=== PATIENT | female | born 1995 | race Caucasian/White ===

== ENCOUNTER 2018-03-13 11:05 | Emergency (ER) | payer MEDICAID, OTHER ==
[~2018-03-13] VITALS: Ht 170.2 cm; Wt 59.0 kg
[~2018-03-13 11:05] MED LIST: NO HOME MEDS
[2018-03-13] MEDS ORDERED: TETanus/Pertussis (Acell)/Diphther VAC/PF (Tdap-Adult) 0.5ml syringe IM ONE (12:45)
[2018-03-13] MEDS ORDERED: LIDOcaine 1.5% w/epinephrine 1:200,000 5ml ampul IJ ONE (12:45)
[2018-03-13 13:28] VITALS: BP 130/77
== END 2018-03-13 13:42 | disposition home or self-care (01) ==
LOC: ER 11:05
DX: S81.812A Laceration without foreign body, left lower leg, initial encounter (principal); F12.90 Cannabis use, unspecified, uncomplicated; Z88.8 Allergy status to other drugs, medicaments and biological substances; W18.39XA Other fall on same level, initial encounter; Y93.89 Activity, other specified; Y92.89 Other specified places as the place of occurrence of the external cause; Y99.8 Other external cause status
CPT/HCPCS: 12002; 90471; 90715; 99283; A6449; J3490

== ENCOUNTER 2018-10-29 12:40 | Emergency (ER) | payer MEDICAID ==
[~2018-10-29] VITALS: Ht 170.2 cm; Wt 53.0 kg
[2018-10-29 13:24] LABS: URINE HCG NEGATIVE (NEG)
[2018-10-29 13:26] LABS: BASOPHILS # (AUTO) 0.1 X10'3 (0-0.2); BASOPHILS % (AUTO) 0.8 % (0-1); EOSINOPHILS # (AUTO) 0.1 X10'3 (0-0.9); EOSINOPHILS % (AUTO) 1.5 % (0-6); HEMATOCRIT 40.8 % (35.0-45.0); HEMOGLOBIN 13.7 g/dl (12.0-16.0); LYMPHOCYTES % (AUTO) 23.1 % (21-51); MEAN CORPUSCULAR HEMOGLOBIN 28.6 PG (27.0-31.0); MEAN CORPUSCULAR HGB CONC 33.6 g/dL (33.0-36.5); MEAN PLATELET VOLUME 7.7 FL (7.4-10.4); MONOCYTES # (AUTO) 0.5 X10'3 (0-0.9); MONOCYTES % (AUTO) 5.2 % (2-12); NEUTROPHILS # (AUTO) 6.1 X10'3 (1.8-7.7); NEUTROPHILS % (AUTO) 69.4 % (42-75); PLATELET COUNT 331 X10'3 (140-440); RED CELL DISTRIBUTION WIDTH 14.1 % (11.5-14.5); WHITE BLOOD COUNT 8.9 X10'3 (4.5-11.0)
[2018-10-29 13:28] LABS: CLARITY,URINE CLEAR (Clear); COLOR,URINE YELLOW (Yellow); GLUCOSE, URINE NEGATIVE (Neg); KETONES,URINE NEGATIVE (Neg); LEUKOCYTE ESTERASE ,URINE TRACE (Neg); NITRITES, URINE NEGATIVE (Neg); OCCULT BLOOD,URINE TRACE-LYSED (Neg); PROTEIN,URINE NEGATIVE (Neg); UROBILINOGEN,URINE 0.2 E.U/dL (0.2-1.0)
[2018-10-29 13:33] LABS: UA COLLECTION TYPE CLN CATCH MIDSTREAM
[2018-10-29 13:39] LABS: RBC,URINE 0-2 /HPF (0-2); WBC,URINE 20-30 /HPF (0-4)
[2018-10-29 13:40] LABS: BACTERIA,URINE FEW /HPF (Neg); SQUAMOUS EPITHELIAL CELL,UR FEW /LPF (FEW)
[2018-10-29 13:41] LABS: WBC CLUMPS,URINE MODERATE /HPF (NEGATIVE)
[2018-10-29 13:48] LABS: ALANINE AMINOTRANSFERASE 21 U/L (12-78); ALBUMIN 4.4 G/DL (3.4-5.0); ALBUMIN/GLOBULIN RATIO 1.2 (1.1-1.5); ALKALINE PHOSPHATASE 91 IU/L (46-116); ANION GAP 9 (8-16); ASPARTATE AMINO TRANSFERASE 11 U/L (10-37); BILIRUBIN,TOTAL 0.3 MG/DL (0.1-1.0); BLOOD UREA NITROGEN 11 MG/DL (7-18); BUN/CREATININE RATIO 12.4 (6.6-38.0); CALCIUM 9.5 MG/DL (8.5-10.1); CHLORIDE 103 MMOL/L (99-107); CREATININE 0.89 MG/DL (0.40-0.90); GLUCOSE 96 MG/DL (70-104); POTASSIUM 4.7 MMOL/L (3.5-5.1); SODIUM 140 MMOL/L (135-145); TOTAL CARBON DIOXIDE 27.8 MMOL/L (24-32); TOTAL PROTEIN 8.1 G/DL (6.4-8.2); eGFR 79 ML/MIN
[2018-10-29 13:50] LABS: PROTHROMBIN TIME 10.4 SECONDS (9.0-12.0)
[2018-10-29 14:49] LABS: BETA HCG,QUANTITATIVE < 1.0 mIU/ml
[2018-10-29] MEDS ORDERED: SULF1TAB49 PO (15:21)
[2018-10-29 15:38] VITALS: BP 124/87
== END 2018-10-29 15:39 | disposition home or self-care (01) ==
LOC: ER 12:40
DX: N39.0 Urinary tract infection, site not specified (principal); F12.90 Cannabis use, unspecified, uncomplicated; Z88.1 Allergy status to other antibiotic agents; Z88.8 Allergy status to other drugs, medicaments and biological substances
CPT/HCPCS: 36415; 76830; 80053; 81001; 81025; 84702; 85025; 85610; 87077; 87088; 87186; 99284

== ENCOUNTER 2018-12-30 15:40 | Emergency (ER) | payer MEDICAID ==
[~2018-12-30] VITALS: Ht 170.2 cm; Wt 56.4 kg
[2018-12-30 17:09] LABS: BASOPHILS % (AUTO) 0.5 % (0-1); EOSINOPHILS # (AUTO) 0.1 X10'3 (0-0.9); HEMATOCRIT 35.1 % (35.0-45.0); HEMOGLOBIN 11.6 g/dl (12.0-16.0); LYMPHOCYTES # (AUTO) 2.6 X10'3 (1.1-4.8); MEAN CORPUSCULAR HEMOGLOBIN 28.4 PG (27.0-31.0); MEAN CORPUSCULAR HGB CONC 33.1 g/dL (33.0-36.5); MEAN CORPUSCULAR VOLUME 85.7 FL (78-98); MEAN PLATELET VOLUME 7.7 FL (7.4-10.4); MONOCYTES # (AUTO) 0.4 X10'3 (0-0.9); MONOCYTES % (AUTO) 4.6 % (2-12); NEUTROPHILS # (AUTO) 5.8 X10'3 (1.8-7.7); NEUTROPHILS % (AUTO) 64.9 % (42-75); PLATELET COUNT 301 X10'3 (140-440); RED CELL DISTRIBUTION WIDTH 13.2 % (11.5-14.5); WHITE BLOOD COUNT 8.9 X10'3 (4.5-11.0)
[2018-12-30] MEDS ORDERED: FERR325T28 PO (17:23)
[2018-12-30 17:40] LABS: URINE HCG NEGATIVE (NEG)
[2018-12-30 17:42] VITALS: BP 130/81
== END 2018-12-30 17:44 | disposition home or self-care (01) ==
LOC: ER 15:40
DX: N93.9 Abnormal uterine and vaginal bleeding, unspecified (principal); R53.83 Other fatigue; F12.90 Cannabis use, unspecified, uncomplicated; Z88.1 Allergy status to other antibiotic agents; Z88.8 Allergy status to other drugs, medicaments and biological substances; Z79.899 Other long term (current) drug therapy
CPT/HCPCS: 36415; 81025; 85025; 99283

== ENCOUNTER 2019-05-17 14:04 | Emergency (ER) | payer MEDICAID ==
[~2019-05-17] VITALS: Ht 170.2 cm; Wt 54.8 kg
[2019-05-17 14:07] VITALS: BP 121/85
== END 2019-05-17 15:39 | disposition home or self-care (01) ==
LOC: ER 14:05
DX: S93.492A Sprain of other ligament of left ankle, initial encounter (principal); F17.200 Nicotine dependence, unspecified, uncomplicated; F12.90 Cannabis use, unspecified, uncomplicated; F10.99 Alcohol use, unspecified with unspecified alcohol-induced disorder; Z88.1 Allergy status to other antibiotic agents; Z88.8 Allergy status to other drugs, medicaments and biological substances; W18.39XA Other fall on same level, initial encounter; Y93.89 Activity, other specified; Y92.89 Other specified places as the place of occurrence of the external cause; Y99.8 Other external cause status; Y90.9 Presence of alcohol in blood, level not specified
CPT/HCPCS: 29515; 73610; 99283

== ENCOUNTER 2019-06-05 16:20 | Emergency (ER) | payer MEDICAID ==
[~2019-06-05] VITALS: Ht 167.6 cm; Wt 54.0 kg
[2019-06-05 16:36] VITALS: BP 133/90
[2019-06-05] MEDS ORDERED: DOXE25CA3 PO (16:58)
[2019-06-05] MEDS ORDERED: PRAZ1CAP5 PO (16:58)
[2019-06-05] MEDS ORDERED: BUSP10TA3 PO (16:58)
[2019-06-05] MEDS ORDERED: LORA1TAB PO (17:09)
[2019-06-05] MEDS ORDERED: LORazepam 1 MG tablet PO ONE (17:10)
== END 2019-06-05 17:37 | disposition home or self-care (01) ==
LOC: ER 16:21
DX: F41.0 Panic disorder [episodic paroxysmal anxiety] (principal); R07.89 Other chest pain; F32.9 Major depressive disorder, single episode, unspecified; F12.90 Cannabis use, unspecified, uncomplicated; F10.99 Alcohol use, unspecified with unspecified alcohol-induced disorder; Z88.1 Allergy status to other antibiotic agents; Z88.8 Allergy status to other drugs, medicaments and biological substances; Z79.899 Other long term (current) drug therapy; Y90.9 Presence of alcohol in blood, level not specified
CPT/HCPCS: 93005; 99283

== ENCOUNTER 2019-12-10 12:37 | Emergency (ER) | payer MEDICAID, OTHER ==
[~2019-12-10] VITALS: Ht 170.2 cm; Wt 57.3 kg
[~2019-12-10 12:37] MED LIST changes: +BUSP10TA3 PO; +DOXE25CA3 PO; -NO HOME MEDS; +PRAZ1CAP5 PO
--- NOTE | 2019-12-10 13:11 | NUR ---
Provider is with the patient at this time.
[2019-12-10] MEDS ORDERED: LORA-269 PO (13:18)
[2019-12-10] MEDS ORDERED: LORazepam 1 MG tablet PO ONE (13:20)
[2019-12-10 13:32] VITALS: BP 120/63
== END 2019-12-10 13:33 | disposition home or self-care (01) ==
LOC: ER 12:37
DX: F41.9 Anxiety disorder, unspecified (principal); F32.9 Major depressive disorder, single episode, unspecified; F12.90 Cannabis use, unspecified, uncomplicated; Z72.89 Other problems related to lifestyle; Z72.0 Tobacco use; Z88.1 Allergy status to other antibiotic agents
CPT/HCPCS: 99283

== ENCOUNTER 2019-12-12 15:22 | Emergency (ER) | payer MEDICAID, OTHER ==
[~2019-12-12] VITALS: Ht 170.2 cm; Wt 54.5 kg
[~2019-12-12 15:22] MED LIST changes: +LORA-269 PO
[2019-12-12] MEDS ORDERED: LORazepam 1 MG tablet PO ONE (16:05)
[2019-12-12] MEDS ORDERED: LORA-269 PO (17:01)
[2019-12-12 17:16] VITALS: BP 113/80
== END 2019-12-12 17:18 | disposition home or self-care (01) ==
LOC: ER 15:22
DX: F41.0 Panic disorder [episodic paroxysmal anxiety] (principal); R06.02 Shortness of breath; R07.89 Other chest pain; F41.9 Anxiety disorder, unspecified; F32.9 Major depressive disorder, single episode, unspecified; F12.90 Cannabis use, unspecified, uncomplicated; Z88.0 Allergy status to penicillin; Z88.1 Allergy status to other antibiotic agents; Z79.899 Other long term (current) drug therapy
CPT/HCPCS: 99283

== ENCOUNTER 2020-06-13 23:43 | Emergency (ER) | payer MEDICAID, OTHER ==
[~2020-06-13] VITALS: Ht 170.2 cm; Wt 57.7 kg
[2020-06-13 23:47] VITALS: BP 134/90
--- NOTE | 2020-06-14 00:03 | NUR ---
PT IS RESTING QUIETLY ON GURNEY, LAC TO RT GREAT TOE, NO BLEEDING, PT IS WAITING TO BE EVALUATED
[2020-06-14] MEDS ORDERED: LIDOcaine 1% W/epiNEPHrine 1:200,000 10ml vial IJ ONE (00:40)
[2020-06-14] MEDS ORDERED: ibuprofen 200mg tablet PO ONE (00:50)
== END 2020-06-14 01:42 | disposition home or self-care (01) ==
LOC: ER 23:43
DX: S91.111A Laceration without foreign body of right great toe without damage to nail, initial encounter (principal); F41.9 Anxiety disorder, unspecified; F32.9 Major depressive disorder, single episode, unspecified; F12.90 Cannabis use, unspecified, uncomplicated; Z72.89 Other problems related to lifestyle; Z88.1 Allergy status to other antibiotic agents; Z88.8 Allergy status to other drugs, medicaments and biological substances; Z79.899 Other long term (current) drug therapy; W18.39XA Other fall on same level, initial encounter; Y93.89 Activity, other specified; Y92.89 Other specified places as the place of occurrence of the external cause; Y99.8 Other external cause status
CPT/HCPCS: 12001; 73660; 99283

== ENCOUNTER 2021-11-02 16:08 | Emergency (ER) | payer MEDICAID ==
[~2021-11-02] VITALS: Ht 170.2 cm; Wt 56.8 kg
[2021-11-02] MEDS ORDERED: LORazepam 1 MG tablet PO ONE (16:20)
[2021-11-02 16:24] VITALS: BP 132/100
[2021-11-02] MEDS ORDERED: HYDR-3686 PO (17:07)
== END 2021-11-02 17:57 | disposition home or self-care (01) ==
LOC: ER 16:09
DX: F41.9 Anxiety disorder, unspecified (principal); R07.89 Other chest pain; F41.0 Panic disorder [episodic paroxysmal anxiety]; F31.9 Bipolar disorder, unspecified; F12.90 Cannabis use, unspecified, uncomplicated; Z88.1 Allergy status to other antibiotic agents; Z72.89 Other problems related to lifestyle; Z88.8 Allergy status to other drugs, medicaments and biological substances; Z79.899 Other long term (current) drug therapy
CPT/HCPCS: 93005; 99283

== ENCOUNTER 2021-12-08 15:27 | Emergency (ER) | payer MEDICAID ==
[~2021-12-08] VITALS: Ht 170.2 cm; Wt 59.6 kg
[~2021-12-08 15:27] MED LIST changes: +HYDR-3686 PO
[2021-12-08 15:56] VITALS: BP 170/95
[2021-12-08] MEDS ORDERED: LORazepam 2 mg/ml vial IM ONE (16:10)
[2021-12-08] MEDS ORDERED: ibuprofen tablet 400 MG TABLET PO ONE (16:10)
[2021-12-08] MEDS ORDERED: LORA-269 PO (17:56)
== END 2021-12-08 18:15 | disposition home or self-care (01) ==
LOC: ER 15:27
DX: F41.0 Panic disorder [episodic paroxysmal anxiety] (principal); R19.7 Diarrhea, unspecified; R11.10 Vomiting, unspecified; R07.89 Other chest pain; F31.9 Bipolar disorder, unspecified; F12.90 Cannabis use, unspecified, uncomplicated; Z72.89 Other problems related to lifestyle; Z88.1 Allergy status to other antibiotic agents; Z88.8 Allergy status to other drugs, medicaments and biological substances; Z79.899 Other long term (current) drug therapy
CPT/HCPCS: 71045; 93005; 96372; 99283; J2060

== ENCOUNTER 2022-03-23 16:12 | Emergency (ER) | payer MEDICAID ==
[~2022-03-23] VITALS: Ht 170.2 cm; Wt 60.0 kg
[2022-03-23 16:35] VITALS: BP 127/70
[2022-03-23] MEDS ORDERED: ALPRAZolam 0.25mg tablet PO ONE (17:40)
--- NOTE | 2022-03-23 17:56 | NUR ---
po med given
== END 2022-03-23 18:25 | disposition home or self-care (01) ==
LOC: ER 16:13
DX: F41.0 Panic disorder [episodic paroxysmal anxiety] (principal); F31.9 Bipolar disorder, unspecified; F12.90 Cannabis use, unspecified, uncomplicated; Z72.89 Other problems related to lifestyle; Z88.1 Allergy status to other antibiotic agents; Z88.8 Allergy status to other drugs, medicaments and biological substances; Z79.899 Other long term (current) drug therapy
CPT/HCPCS: 99283

== ENCOUNTER 2022-04-09 14:05 | Emergency (ER) | payer MEDICAID ==
[~2022-04-09] VITALS: Ht 170.2 cm; Wt 60.0 kg
[2022-04-09 14:12] VITALS: BP 127/85
[2022-04-09] MEDS ORDERED: ALPRAZolam 0.5mg tablet PO ONE (15:00)
[2022-04-09] MEDS ORDERED: ALPR-624 PO (15:18)
== END 2022-04-09 15:35 | disposition home or self-care (01) ==
LOC: ER 14:06
DX: F41.9 Anxiety disorder, unspecified (principal); F31.9 Bipolar disorder, unspecified; F12.90 Cannabis use, unspecified, uncomplicated; Z88.1 Allergy status to other antibiotic agents; Z88.8 Allergy status to other drugs, medicaments and biological substances; Z91.041 Radiographic dye allergy status
CPT/HCPCS: 93005; 99283

== ENCOUNTER 2023-02-06 10:28 | Emergency (ER) | payer MEDICAID ==
[~2023-02-06] VITALS: Ht 170.2 cm; Wt 81.8 kg
[~2023-02-06 10:28] MED LIST changes: +ALPR-624 PO
[2023-02-06 10:36] VITALS: BP 126/82
[2023-02-06] MEDS ORDERED: ketorolac tromethamine 15mg/ml inj. IM ONE (11:50)
== END 2023-02-06 12:19 | disposition home or self-care (01) ==
LOC: ER 10:29
DX: M25.551 Pain in right hip (principal); M25.552 Pain in left hip; F31.9 Bipolar disorder, unspecified; F12.90 Cannabis use, unspecified, uncomplicated; Z88.1 Allergy status to other antibiotic agents; Z88.8 Allergy status to other drugs, medicaments and biological substances; Z91.041 Radiographic dye allergy status
CPT/HCPCS: 72170; 96372; 99283; J1885

== ENCOUNTER 2025-02-23 22:13 | Inpatient (IN) | payer MEDICAID ==
[~2025-02-23] VITALS: Ht 167.6 cm; Wt 45.9 kg
--- NOTE | 2025-02-23 22:25 | ELECTROCARDIOGRAPH REPORT ---
[facility] Test Date: 2025-02-23 Test Time: 22:22:17 Pat Name: JORDAN ARANDA Department: EMERGENCY ROOM Room: ED 2 Gender: F Attorney At Law: DONNA : 1995 Requested By: LAWSON ALDANA Order Number: [id number] Reading MD: Lawson Stiles Measurements Intervals [place] Rate: 85 P: 67 ND: 112 QRS: 79 QRSD: 101 T: 36 QT: 362 QTc: 431 Interpretive Statements Sinus rhythm Borderline short ND interval RSR' in V1 or V2, right VCD or RVH Electronically Signed On 02-24-2025 6:18:32 PDT by Lawson Stiles Please click the below link to view image of tracing.
[2025-02-23] MEDS: phenoBARBITAL inj 130 MG in normal saline 100ml IV soln 99 ML IV ONE (22:55)
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
[2025-02-23 23:30] LABS: BASOPHILS % (AUTO) 0.6 % (0-1); EOSINOPHILS % (AUTO) 0 % (0-6); HEMATOCRIT 39.3 % (35.0-45.0); HEMOGLOBIN 13.2 g/dl (12.0-16.0); LYMPHOCYTES # (AUTO) 1.4 X10'3 (1.1-4.8); LYMPHOCYTES % (AUTO) 20.1 % (21-51); MEAN CORPUSCULAR HEMOGLOBIN 28.7 PG (27.0-31.0); MEAN CORPUSCULAR HGB CONC 33.5 g/dL (33.0-36.5); MEAN CORPUSCULAR VOLUME 85.5 FL (78-98); MEAN PLATELET VOLUME 7.9 FL (7.4-10.4); MONOCYTES # (AUTO) 0.3 X10'3 (0-0.9); MONOCYTES % (AUTO) 4.9 % (2-12); NEUTROPHILS # (AUTO) 5.1 X10'3 (1.8-7.7); NEUTROPHILS % (AUTO) 74.4 % (42-75); PLATELET COUNT 290 X10'3 (140-440); RED CELL DISTRIBUTION WIDTH 13.7 % (11.5-14.5); WHITE BLOOD COUNT 6.9 X10'3 (4.5-11.0)
[2025-02-23 23:46] LABS: APTT 27 SECONDS (22-32); INR 1.2 INR
[2025-02-24] MEDS: normal saline 1000ml 1,000 ML IV ONE (00:22)
[2025-02-24 00:28] LABS: ALANINE AMINOTRANSFERASE 37 U/L (12-78); ALBUMIN 4.9 G/DL (3.4-5.0); ALBUMIN/GLOBULIN RATIO 1.4 (1.1-1.5); ALKALINE PHOSPHATASE 73 IU/L (46-116); ANION GAP 13 (8-16); ASPARTATE AMINO TRANSFERASE 25 U/L (10-37); BILIRUBIN,TOTAL 0.7 MG/DL (0.1-1.0); BLOOD UREA NITROGEN 9 MG/DL (7-18); BUN/CREATININE RATIO 13.4 (10.0-20.0); CALCIUM 9.3 MG/DL (8.5-10.1); CHLORIDE 102 MMOL/L (99-107); CREATININE 0.67 MG/DL (0.40-0.90); GLUCOSE 114 MG/DL (70-104); POTASSIUM 3.5 MMOL/L (3.5-5.1); SODIUM 143 MMOL/L (135-145); TOTAL CARBON DIOXIDE 28.4 MMOL/L (24-32); TOTAL PROTEIN 8.3 G/DL (6.4-8.2); eCRCL 90 ML/MIN; eGFR > 90 ML/MIN
[2025-02-24 00:34] LABS: BILIRUBIN,URINE NEGATIVE (Neg); CLARITY,URINE CLEAR (Clear); COLOR,URINE YELLOW (Yellow); GLUCOSE, URINE NEGATIVE (Neg); KETONES,URINE 15 mg/dl (Neg); LEUKOCYTE ESTERASE ,URINE NEGATIVE (Neg); NITRITES, URINE NEGATIVE (Neg); OCCULT BLOOD,URINE NEGATIVE (Neg); PROTEIN,URINE 30 mg/dl (Neg)
[2025-02-24 00:39] LABS: UA COLLECTION TYPE CLN CATCH MIDSTREAM
[2025-02-24 00:40] LABS: BACTERIA,URINE NONE SEEN /HPF (Neg); RBC,URINE 0-2 /HPF (0-2); SQUAMOUS EPITHELIAL CELL,UR FEW /LPF (FEW); WBC,URINE 0-4 /HPF (0-4)
[2025-02-24 00:40] LABS: CREATINE KINASE 260 U/L (26-192); FREE T4 (FREE THYROXINE) 0.79 NG/DL (0.73-1.40); MAGNESIUM 1.8 MG/DL (1.5-2.4); PHOSPHORUS 3.3 MG/DL (2.3-4.5); THYROID STIMULATING HORMONE 0.37 ulU/ml (0.34-4.50)
[2025-02-24 00:41] LABS: BETA HCG,QUANTITATIVE < 1.0 mIU/ml
[2025-02-24 00:41] LABS: MUCUS STRANDS FEW /LPF (Neg)
[2025-02-24 00:42] LABS: ETHANOL < 10 MG/DL (<10)
[2025-02-24 00:46] LABS: URINE AMPHETAMINE SCREEN NEGATIVE (Neg); URINE BARBITUATE SCREEN NEGATIVE (Neg); URINE BENZODIAZEPINES SCREEN NEGATIVE (Neg); URINE CANNABINOID SCREEN POSITIVE (Neg); URINE COCAINE SCREEN NEGATIVE (Neg); URINE METHADONE SCREEN NEGATIVE (Neg); URINE OPIATE SCREEN NEGATIVE (Neg); URINE PHENCYCLIDINE SCREEN NEGATIVE (Neg)
[2025-02-24] MEDS: phenoBARBITAL sod 130mg/ml inj. ONE (01:05)
[2025-02-24] MEDS ORDERED: magnesium sulf-water 4G/100mL 100 ML IV PRN (01:15)
[2025-02-24] MEDS ORDERED: ondansetron/PF 4mg/2ml inj IV PRN (01:15)
[2025-02-24] MEDS ORDERED: magnesium sulf-water 2g/50mL 50 ML IV PRN (01:15)
[2025-02-24] MEDS ORDERED: potassium Cl 20 mEq SR tablet PO PRN ×2 (01:15)
[2025-02-24] MEDS ORDERED: HYDROcodone/acetaminophen 5mg/325mg tablet PO PRN (01:15)
[2025-02-24] MEDS ORDERED: magnesium Cl slow-release 64mg tablet PO PRN (01:15)
[2025-02-24] MEDS ORDERED: potassium Cl 40MEQ/1/2NS 520ml 520 ML IV PRN (01:15)
[2025-02-24] MEDS ORDERED: acetaminophen 325mg tablet PO PRN (01:15)
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
[2025-02-24] MEDS ORDERED: haloperidol 5mg tablet PO PRN (01:35)
[2025-02-24] MEDS: normal saline 1000ml 1,000 ML IV SCH (02:58)
[2025-02-24] MEDS: K and/or MAG REPLACEMENT MC SCH (08:00)
[2025-02-24] MEDS: LORazepam 2 mg/ml vial IV PRN (09:28)
[2025-02-24] MEDS: thiamine 100mg/ml 2ml inj. IV SCH (09:28)
[2025-02-24] MEDS: multivitamins, therapeutics tablet PO SCH (09:28)
[2025-02-24] MEDS: folic acid 1mg/0.2ml inj IV SCH (09:34)
[2025-02-24] MEDS ORDERED: THIA50TA10 PO (12:38)
[2025-02-24] MEDS ORDERED: DIAZ5TAB PO (12:38)
[2025-02-24] MEDS ORDERED: NALT50TA5 PO (12:38)
[2025-02-24] MEDS ORDERED: FOLI0.4T6 PO (12:38)
[2025-02-24 14:13] VITALS: BP 129/94; PULSE 92; RESP 18; TEMP 98.2; O2SAT 99
[2025-02-24] MEDS ORDERED: enoxaparin 40mg/0.4ml syringe SQ SCH (20:00)
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
== END 2025-02-24 15:55 | disposition home or self-care (01) | DRG 249 ==
LOC: ER 22:13 → ED HOLD 02-24 01:19
PROVIDERS: ADMIT Internal Medicine; ATTEND Family Medicine
DX: R11.0 Nausea (principal); F10.939 Alcohol use, unspecified with withdrawal, unspecified; F11.23 Opioid dependence with withdrawal; F31.9 Bipolar disorder, unspecified; F41.9 Anxiety disorder, unspecified; F12.90 Cannabis use, unspecified, uncomplicated
CPT/HCPCS: 36415; 80053; 80305; 80320; 81001; 82550; 83735; 84100; 84439; 84443; 84484; 84702; 85025; 85610; 85730; 93005; 99285; G0378; J2060; J2560; J3411; J3490; J7030

== ENCOUNTER 2025-02-25 10:42 | Emergency (ER) | payer MEDICAID ==
[~2025-02-25] VITALS: Ht 167.6 cm; Wt 43.0 kg
[2025-02-25 10:42] VITALS: BP 149/87; PULSE 92; RESP 16; O2SAT 100
[~2025-02-25 10:42] MED LIST changes: -ALPR-624 PO; -BUSP10TA3 PO; +DIAZ5TAB PO; -DOXE25CA3 PO; +FOLI0.4T6 PO; -HYDR-3686 PO; -LORA-269 PO; +NALT50TA5 PO; -PRAZ1CAP5 PO; +THIA50TA10 PO
[2025-02-25] MEDS: diazepam 5mg tablet PO ONE (11:51)
--- NOTE | 2025-02-25 13:54 | Physician Documentation ---
History of Present Illness General Chief Complaint: Medication Request Stated Complaint: WITHDRAWAL Time Seen by MD: 11:05 Primary Medical Doctor: Chauncey Whitaker History of Present Illness Initial Comments 29-year-old female who presents to the emergency department with a complaint of alcohol withdrawal. He is seen in the emergency department with a the day before and discharged with detox plan to include naltrexone, Valium, thiamine and folic acid. Patient only able to obtain two prescriptions so throughout the night she diverted and used kradum. Presents in withdrawal with some pustule symptoms. Denies recent alcohol use. Wishes to obtain a prescriptions and continue with detoxification. Medication Reconciliation Allergies: Coded Allergies: amoxicillin (Verified Allergy, Unknown, 02/06/23) clavulanic acid (Verified Allergy, Unknown, 02/06/23) erythromycin base (Verified Allergy, Unknown, 02/06/23) HIVES Scheduled Folic Acid* (Folic Acid*), 1 TAB PO DAILY Naltrexone Hcl (Naltrexone Hcl), 1 TAB PO DAILY Thiamine HCl (Vitamin B-1), 2 TAB PO DAILY Scheduled PRN Diazepam (Valium), 1 TAB PO Q12H PRN PRN for for anxiety/agitation Discontinued Medications Alprazolam (Xanax), 1 TAB PO TID PRN for anxiety Discontinued Reason: patient no longer taking Buspirone HCl (Buspirone HCl), 1 TAB PO TID, (Reported) Discontinued Reason: patient no longer taking Doxepin HCl (Doxepin HCl), 1 TAB PO HS, (Reported) Discontinued Reason: patient no longer taking Hydroxyzine Hcl (Atarax), 25 MG PO Q6H Discontinued Reason: patient no longer taking Lorazepam (Ativan), 1 TAB PO Q8H Discontinued Reason: patient no longer taking Lorazepam (Ativan), 1 TAB PO Q8H Discontinued Reason: patient no longer taking Lorazepam (Ativan), 1 TAB PO Q12H Discontinued Reason: patient no longer taking Prazosin Hcl (Prazosin Hcl), 1 TAB PO HS, (Reported) Discontinued Reason: patient no longer taking Past Medical History Past Medical History: No Pertinent History, Anxiety, Bipolar, Depression, Panic Disorder Past Surgical History: no surgical history Smoking: Non-Smoker Alcohol Use: Occasionally Drug Use: marijuana Lives with: Mother Lives In: Home Occupation: employed, student Review of Systems Constitutional: Reports: chills; Denies: fever GI: Reports: abdominal pain, nausea Musculoskeletal Muscle tetany Neuro: Reports: headache, weakness; Denies: seizures, dizziness Physical Exam Physical Exam Vital Signs: RN Vital Signs have been reviewed: Yes, Temperature: 98.0, Source: Temporal, Heart Rate: 92, Respiratory Rate: 16, BP: 149/87, Pulse Oximetry: 100, Weight: 43.000 General Appearance: alert, moderate distress Head: normal inspection Face: normal inspection Pupils/EOM/Fundus: PERRLA Neck: supple Respiratory: no respiratory distress Cardiovascular: normal peripheral pulses Gastrointestinal: normal palpation Extremities: normal range of motion Neurologic: oriented x4, heeler machine II-XII nml as tested Motor / Sensory: no motor deficit, no sensory deficit Psychiatric: normal mood/affect, anxiety, agitation Skin: normal color, warm/dry Progress Results/Orders Results/Orders Completed Orders - TK OVERTON Diazepam Tablet (Valium Tablet) (02/25/25 11:40) Vital Signs 02/25/25 02/25/25 10:42 14:13 Temp 98.0 98.0 Pulse 92 Resp 16 B/P (MAP) 149/87 Pulse Ox 100 Medical Decision Making Differential Diagnosis 29-year-old female needing breakthrough benzodiazepine while awaiting prescription to be filled. Provided Valium 5 mg which satiated patient's symptoms. Coordinating with pharmacy to have patient's medications ready prior to discharge. She was discharged to continue with her detox outpatient management to include ceftriaxone, Valium, thiamine and folic acid. Discharged with steady gait while oriented. Departure Disposition: HOME / SELF CARE / HOMELESS Impression: Primary Impression: Alcohol withdrawal Qualified Codes: F10.930 - Alcohol use, unspecified with withdrawal, uncomplicated Additional Impression: Recreational drug use Condition: Improved Discharge Instructions: Medicine Refill at the Emergency Department Additional Instructions: Please presents to the pharmacy to obtain your prescriptions. Please have pharmacy called in the emergency department if prescriptions were unavailable. Thank you for visiting emergency department [facility]. Please abstain from recreational drug use of any kind. Referrals: NO PRIMARY CARE PROVIDER (PCP) Education Educated: Patient Educated regarding: diagnosis, treatment Signature Scribe Signature: . Attestation: TK VELAZQUEZ Feb 25, 2025 13:54
[2025-02-25 14:13] VITALS: TEMP 98
== END 2025-02-25 14:15 | disposition home or self-care (01) ==
LOC: ER 10:42
DX: F10.239 Alcohol dependence with withdrawal, unspecified (principal); F19.10 Other psychoactive substance abuse, uncomplicated; F12.90 Cannabis use, unspecified, uncomplicated; Z88.1 Allergy status to other antibiotic agents; Z79.899 Other long term (current) drug therapy; Z72.89 Other problems related to lifestyle; Y90.9 Presence of alcohol in blood, level not specified
CPT/HCPCS: 99283

== ENCOUNTER 2025-05-05 04:22 | Emergency (ER) | payer MEDICAID ==
[~2025-05-05] VITALS: Ht 167.6 cm; Wt 51.3 kg
[~2025-05-05 04:22] MED LIST changes: -FOLI0.4T6 PO
--- NOTE | 2025-05-05 04:28 | ELECTROCARDIOGRAPH REPORT ---
[facility] Test Date: 2025-05-05 Test Time: 04:26:24 Pat Name: JORDAN ARANDA Department: EMERGENCY ROOM Room: Gender: F Review Assistant: DONNA : 1995 Requested By: MACKENZIE MAO Order Number: [id number] Reading MD: Measurements Intervals Meredith Rate: 83 P: 71 PA: 152 QRS: 62 QRSD: 97 T: 52 QT: 378 QTc: 445 Interpretive Statements Sinus rhythm Probable left atrial enlargement RSR' in V1 or V2, probably normal variant Please click the below link to view image of tracing.
--- NOTE | 2025-05-05 04:52 | RADIOLOGY REPORT ---
CHEST RADIOGRAPH Indication: CP Technique: Single frontal view of the chest was obtained Comparison: CHEST,SINGLE VIEW on DOS: 10/14/22, CHEST,SINGLE VIEW on DOS: 12/08/21 FINDINGS: Lines and Tubes: None Lungs: No focal consolidation. Pleura: No effusion. No pneumothorax. Cardiomediastinal contours: Unremarkable Bones: No acute osseous abnormality. IMPRESSION: 1. No acute cardiopulmonary disease.
[2025-05-05 05:09] LABS: MEAN PLATELET VOLUME 8.2 FL (7.4-10.4); RED CELL DISTRIBUTION WIDTH 12.7 % (11.5-14.5)
[2025-05-05 05:19] LABS: CREATININE 0.78 MG/DL (0.40-0.90); TOTAL CARBON DIOXIDE 26.6 MMOL/L (24-32); eCRCL 86 ML/MIN; eGFR 87 ML/MIN
[2025-05-05 05:26] LABS: PRO BRAIN NATRIURETIC PEPTIDE < 30 PG/ML (0-125)
--- NOTE | 2025-05-05 05:51 | Physician Documentation ---
History of Present Illness ~ Chief Complaint: Anxiety Stated Complaint: CHEST PRESSURE A ALS Time Seen by MD: 04:35 Primary Medical Doctor: Chauncey Whitaker Mode of Arrival: EMS HPI 29 year old female with history of anxiety reports "heart attack symptoms." She reports intermittent R arm numbness and pain, chest pressure. Denies fever, N/V/D, history of OR / diabetes. Medication Reconciliation Allergies: Coded Allergies: amoxicillin (Verified Allergy, Unknown, 05/05/25) clavulanic acid (Verified Allergy, Unknown, 05/05/25) erythromycin base (Verified Allergy, Unknown, 05/05/25) HIVES Scheduled Naltrexone Hcl (Naltrexone Hcl), 1 TAB PO DAILY Thiamine HCl (Vitamin B-1), 2 TAB PO DAILY Scheduled PRN Diazepam (Valium), 1 TAB PO Q12H PRN PRN for for anxiety/agitation Past Medical History Past Medical History: No Pertinent History, Anxiety, Bipolar, Depression, Panic Disorder Past Surgical History: no surgical history Smoking Status: Current some day smoker Alcohol Use: Occasionally Drug Use: marijuana Lives with: Mother Lives In: Home Occupation: employed, student Review of Systems All Other Systems at this time: Reviewed and Negative Physical Exam Vital Signs: RN Vital Signs have been reviewed: Yes, Temperature: 98.0, Source: Oral, Heart Rate: 75, Respiratory Rate: 12, BP: 119/84, Pulse Oximetry: 98, Weight: 51.300 Physical Exam HEENT: PERRL, moist oral mucosa, EOMI Pulmonary: No respiratory distress MSK: no deformity Skin: w/d/i, no rash Neuro: alert, nonfocal Psych: normal affect Progress Results/Orders Results/Orders Orders - MACKENZIE MAO MD Chest,Single View (05/05/25 04:23) Monitor (05/05/25 04:23) Saline Lock (05/05/25 04:23) Oxygen (05/05/25 04:23) Hs Troponin I W Calculations (05/05/25 06:23) Hs Troponin I W Calculations (05/05/25 07:23) Urinalysis, Cult If Indicated (05/05/25 04:23) Hcg, Ur Ql (05/05/25 04:23) Straight Cath For Urine Sample (05/05/25 04:23) Completed Orders - MACKENZIE MAO MD Chest,Single View (05/05/25 04:23) Cbc/Diff (05/05/25 04:23) PBNP (05/05/25 04:23) Electrocardiogram (05/05/25 04:23) Hs Troponin I W Calculations (05/05/25 04:23) Lipase (05/05/25 04:23) CMP (05/05/25 04:23) Vital Signs 05/05/25 05/05/25 05/05/25 05/05/25 04:23 04:31 05:17 05:18 Temp 98.0 98.0 98.0 Pulse 75 83 75 Resp 12 15 12 12 B/P (MAP) 143/102 143/102 (116) 119/84 (96) Pulse Ox 99 100 98 Laboratory Tests Test 05/05/25 04:47 White Blood Count 9.9 Red Blood Count 4.01 L Hemoglobin 11.8 L Hematocrit 34.7 L Mean Corpuscular Volume 86.5 Mean Corpuscular Hemoglobin 29.4 Mean Corpuscular Hemoglobin Concent 33.9 Red Cell Distribution Width 12.7 Platelet Count 284 Mean Platelet Volume 8.2 Neutrophils (%) (Auto) 43.9 Lymphocytes (%) (Auto) 49.6 Monocytes (%) (Auto) 4.0 Eosinophils (%) (Auto) 2.0 Basophils (%) (Auto) 0.5 Neutrophils # (Auto) 4.3 Lymphocytes # (Auto) 4.9 H Monocytes # (Auto) 0.4 Eosinophils # (Auto) 0.2 Basophils # (Auto) 0.0 CBC Comment Sodium Level 134 L Potassium Level 3.7 Chloride Level 101 Carbon Dioxide Level 26.6 Anion Gap 6 L Blood Urea Nitrogen 8 Creatinine 0.78 Estimated GFR/1.73 m2 87 BUN/Creatinine Ratio 10.3 Glucose Level 84 Calcium Level 8.7 Total Bilirubin 0.3 Aspartate Amino Transf (AST/SGOT) 19 Alanine Aminotransferase (ALT/SGPT) 21 Alkaline Phosphatase 65 Troponin I High Sensitivity 4 Pro-B-Type Natriuretic Peptide < 30 Total Protein 6.9 Albumin 3.9 Globulin 3.0 Albumin/Globulin Ratio 1.3 Lipase 25 Chemistry Comments Medical Decision Making Findings 29 year old female with likely anxiety symptoms. EKG/CXR/troponin unremarkable. Return precautions., Differential Dx:Considerations: Include: angina, chest wall pain, myocardial infarction, pneumonia, pneumothorax, pulmonary embolus, other Departure Disposition: HOME / SELF CARE / HOMELESS Impression: Primary Impression: Chest pain Discharge Instructions: Nonspecific Chest Pain, Adult Referrals: NO PRIMARY CARE PROVIDER (PCP) Education Educated: Patient Educated regarding: diagnosis, treatment, prognosis, need for follow up Signature Scribe Signature: . Attestation: . MACKENZIE MAO MD May 05, 2025 05:51
[2025-05-05 06:07] VITALS: BP 111/76; PULSE 71; RESP 18; TEMP 98; O2SAT 100
== END 2025-05-05 06:10 | disposition home or self-care (01) ==
LOC: ER 04:22
DX: R07.89 Other chest pain (principal); F41.9 Anxiety disorder, unspecified; R07.9 Chest pain, unspecified; F17.200 Nicotine dependence, unspecified, uncomplicated; F12.90 Cannabis use, unspecified, uncomplicated; Z88.1 Allergy status to other antibiotic agents; Z79.899 Other long term (current) drug therapy; Z72.89 Other problems related to lifestyle
CPT/HCPCS: 36415; 71045; 80053; 83690; 83880; 84484; 85025; 93005; 99285